=== PATIENT | female | born 1945 | race Caucasian/White ===

== ENCOUNTER 2024-04-04 05:56 | Inpatient (IN) | payer MEDICARE, OTHER, SELFPAY ==
[2024-03-21 10:16] VITALS: BMI 35.3
[2024-04-04] VITALS (13 sets, daily range): BP systolic 117–140; BP diastolic 64–111; BMI 34.0
[2024-04-04 08:37] LABS: ACT-LR - POC 324 Seconds (116-155)
--- NOTE | 2024-04-04 08:53 | ITS.CL.PN ---
Ice Maker - Procedure Note
Procedure
Procedure Note:
Watchman implantation report
Date: April 04, 2024
History. History of GI bleed and prior BiV ICD, prior pulmonary vein isolation
Transseptal warping mill operator: Dr. Howe
Device delivery: Dr. Deng
REN warping mill operator: Dr. Eaton
Procedure note:
After informed consent and patient safety timeout the patient was sedated by the anesthesiology service. Under general anesthesia the REN probe was advanced and demonstrated no left atrial appendage thrombus. Under ultrasound guidance an 8 Mongolian
and 9 Mongolian sheaths were placed in the right femoral vein for intracardiac ultrasound of the right atrium and the watchman sheath. The device was interrogated preprocedure with therapies turned off for the duration of procedure and then therapies
turned back on at the end of the case with stable lead parameters.
Utilizing the Accu cross sheath and dilator system the left atrium was accessed over a wire and the watchman sheath was brought to the left atrium. Intracardiac ultrasound demonstrated a small circumferential pericardial effusion pre and post
procedure without change. With access to the left atrium heparin was given with goal 350 seconds ACT. Intravenous dye was injected into the left atrial appendage demonstrating a 25 mm os with relatively short depth and a short and small anterior
plus posterior lobes. Once the pigtail was removed a 31 mm watchman sheath was brought to the left atrium and delivered in the more anterior lobe with 12 to 16% compression, no leak, ostial position, and no change in position with tug testing.
There was slight wire bias and an improvement of the mitral shoulder after the sheath was withdrawn from the left atrium.
Once Pass criteria were met the device was deployed and reimaged without change in compression or leak. Sheath was removed from the left atrium and heparin was discontinued. 35 mg of protamine was given by anesthesiology and [id number] suture
was applied to the right femoral vein after sheaths were removed from the body.
Impression:
Status post delivery of 31 mm device to the left atrial appendage meeting Pass criteria
Plan:
Daily Xarelto 20 mg daily x 3 months with REN in 3 months
--- NOTE | 2024-04-04 09:04 | WATCHMAN ---
Watchman
Wathcman Procedure
Referred by:: Kameron Ortega/ Brain Deng
Date of Referral:: 12/03/23
[id number] Score
Age in Years (65=0, 65-74=1, >/=75=2): > or = 75
Sex (Female=+1): Female
Congestive Heart Failure History (Yes=+1): No
Hypertension History (Yes=+1): Yes
Stroke/TIA/Thromboembolism History (Yes=+2): No
Vascular Disease History (Yes=+1): No
Diabetes Mellitus (Yes=+1): No
Score: 4
Anticoagulation Recommendations: Recommend anticoagulation (as validated in nonvalvular fib)
HASBLED Score
Hypertenstion (uncontrolled >160mmHG systolic): No
Renal disease (dialysis, transplant, Cr >2.26mg/dL or >200umol/L): No
Liver disease (cirrhosis or bilirubin >2x normal w/ AST/ALT/AP >3x normal: No
Stroke history: No
Prior major bleeding or predisposition to bleeding: Yes
Labile INR(unsable/high INRs,time in therapeutic range <60%): No
Age >65: Yes
Medication usage predisposing to bleeding(ASA, NSAIDS): No
Alcohol use (>/= 8 drinks/week): No
Score: 2
Risk: Anticoagulation can be considered, however patient does have moderate risk for major bleeding (2/100 patient-years)
Physician Visits
Perinatal Director:: Ish
Date of Visit:: 12/03/23
Primary Air Twist Operator:: Kameron Ortega
Date of Visit:: 11/01/23
PCP:: Edward
Oral Anticoagulation
Post procedure anticoagulation plan:: Xarelto 20mg daily for 3 months until follow up REN then ASA 81mg indefinitely
Plan
Plan:: 11/15/2023: Patient reviewed by heart team and felt to be an appropriate candidate for Watchman. Called patient and scheduled.
04/04/2024: Patient reviewed by heart team at pre-procedural meeting. Possible 31 or 35mm device but will confirm with REN during procedure. Will continue on Xarelto 20mg daily for 3 months. REN at 3 months and if good seal can transition to ASA 81mg
daily.
--- NOTE | 2024-04-04 13:54 | W.PN.UPDATE ---
Update Note
Progress Note Update
78 yo WF s/p 31mm Watchman device implant (same day). She denies cp, sob, nolan diet, voiding, EKG AsVpaced, groins stable c/d/i, no HT soft. She will continue Xarelto, dose in am. She will have f/u REN in 3 mo. Activity restrictions reviewed. She
will f/u DCA 3 mo. She is for d/c home after 2pm.
--- NOTE | 2024-04-04 14:24 | W.DS.TRANS ---
DC Summary - Matrix Bath Operator
-
Discharge Instructions:
Discharge Diagnosis/Procedures Afib post Watchman
Diet Low Cholesterol
Driving Restrictions No driving for 24 hours
Others Tests Follow up REN at [facility] on 07/06/2024
. You will receive instructions in the mail and
a call the day prior with arrival time.
Instructions:
Stand-Alone Forms: DC Instructions- Cath/EP Lab
Changes to Home Medications: No
Discharge Medications:
DC Medications w/original date entered in [facility]
carvedilol 25 mg tablet 25 mg PO BID 07/13/23
cholecalciferol (vitamin D3) 25 mcg (1,000 unit) tablet (Vitamin D3) 25 mcg PO DAILY 07/13/23
multivitamin 1 tab PO DAILY 07/13/23
rivaroxaban 20 mg tablet (Xarelto) 20 mg PO DAILY 07/13/23
valsartan 160 mg tablet 160 mg PO BID 07/13/23
albuterol sulfate 90 mcg/actuation aerosol inhaler 1 inh inhalation PRN PRN shortness of breath 03/16/24
amlodipine 5 mg tablet 5 mg PO DAILY 03/16/24
rosuvastatin 10 mg tablet 10 mg PO DAILY 03/16/24
spironolactone 25 mg tablet 25 mg PO DAILY 03/16/24
Home Medication Changes
Pending Results: No
== END 2024-04-04 13:58 | disposition home or self-care (01) | DRG 274 ==
LOC: CATH-IN 05:56
PROVIDERS: Internal Medicine Cardiovascular Disease; ADMITTING PHYSICIAN Internal Medicine Cardiovascular Disease; FAMILY PHYSICIAN Family Medicine
PROC: 02L73DK Occlusion of Left Atrial Appendage with Intraluminal Device, Percutaneous Approach (ICD-10-PCS; 2024-04-04)
PROC: B24BZZ4 Ultrasonography of Heart with Aorta, Transesophageal (ICD-10-PCS; 2024-04-04)
PROC: 4B02XTZ Measurement of Cardiac Defibrillator, External Approach (ICD-10-PCS; 2024-04-04)
DX: I48.0 Paroxysmal atrial fibrillation (principal); Z00.6 Encounter for examination for normal comparison and control in clinical research program; I42.8 Other cardiomyopathies; I11.0 Hypertensive heart disease with heart failure; R91.1 Solitary pulmonary nodule; E78.5 Hyperlipidemia, unspecified; E66.9 Obesity, unspecified; F17.200 Nicotine dependence, unspecified, uncomplicated; F10.11 Alcohol abuse, in remission; Z95.810 Presence of automatic (implantable) cardiac defibrillator; I25.2 Old myocardial infarction; Z87.19 Personal history of other diseases of the digestive system; Z68.35 Body mass index [BMI] 35.0-35.9, adult; Z79.01 Long term (current) use of anticoagulants; Z82.49 Family history of ischemic heart disease and other diseases of the circulatory system
CPT/HCPCS: 33340; 85347; 93005; 93355; C1759; C1769; C1892; C1894; Q9967

== ENCOUNTER 2024-07-06 07:11 | Day surgery (SDC) | payer MEDICARE, OTHER, SELFPAY | END 2024-07-06 11:56 | disposition home or self-care (01) | LOC: CATH 07:11 | PROVIDERS: ATTENDING PHYSICIAN Internal Medicine Cardiovascular Disease; FAMILY PHYSICIAN Family Medicine; OTHER PHYSICIAN Internal Medicine Cardiovascular Disease | DX: I48.0 Paroxysmal atrial fibrillation (principal); I08.3 Combined rheumatic disorders of mitral, aortic and tricuspid valves; I70.90 Unspecified atherosclerosis; I25.2 Old myocardial infarction; I10 Essential (primary) hypertension; E78.5 Hyperlipidemia, unspecified; I42.8 Other cardiomyopathies; Z79.899 Other long term (current) drug therapy; Z79.01 Long term (current) use of anticoagulants; Z95.818 Presence of other cardiac implants and grafts | CPT/HCPCS: 93312; 93320; 93325 ==